=== PATIENT | female | born 1995 | race Caucasian/White ===

== ENCOUNTER 2016-12-12 16:10 | Emergency (ER) | payer OTHER ==
[2016-12-12] MEDS ORDERED: Phenazopyridine 95 MG Tab PO ONE (16:57)
[2016-12-12] MEDS ORDERED: Levofloxacin 250 MG Tab PO ONE (16:57)
[2016-12-12 16:58] VITALS: BP 135/82
--- NOTE | 2016-12-12 17:00 | EDM.PDOC ---
[id number]: UTI Time Seen by Provider: 12/12/16 16:57 Source of Information: Reports: Patient History Limitations: Reports: No Limitations - History of Present Illness INITIAL COMMENTS - FREE TEXT/NARRATIVE: 21-year-old female presents the ED with acute lower urinary tract infection. She states symptoms develop since she got up this morning. She has had previous urinary tract infections and knows the feeling of dysuria urgency and frequency. Over the last 3 hours the urine has become grossly bloody as well. She has a constant urge to void. Denies any possibility of and is at the tail end of her current period. Onset: Today Onset Date: 12/12/16 Onset Time: 10:00 Duration: Hour(s):, Getting Worse Location: Reports: Abdomen (Lower abdominal discomfort which constant need to void) Severity: Severe Improves with: Reports: None Worsens with: Reports: None Context: Denies: Activity, Exercise, Lifting, Sick Contact, Trauma, Other Associated Symptoms: Denies: No Other Symptoms, Confusion, Chest Pain, Cough, Diaphoresis, Fever/Chills, Headaches, Loss of Appetite, Malaise, Nausea/Vomiting , Rash, Seizure, Shortness of Breath, Syncope, Weakness Treatments [employer] ORIGINAL: Reports: Other (see below) Lower Abdominal Pain Score (Numeric/FACES): 8 - Related Data Allergies Allergy/AdvReac Type Severity Reaction Status Date / Time No Known Allergies Allergy Verified 12/12/16 16:52 Home Meds: Home Meds Levofloxacin [Levaquin] 500 mg PO Q24H #6 tablet 12/12/16 [Rx] Past Medical History Genitourinary History: Reports: UTI, Recurrent Social & Family History - Living Situation & Occupation Living situation: Reports: Single ED ROS GENERAL - Review of Systems Review Of Systems: See Below Constitutional: Reports: No Symptoms HEENT: Reports: No Symptoms Respiratory: Reports: No Symptoms Cardiovascular: Reports: No Symptoms Endocrine: Reports: No Symptoms GI/Abdominal: Reports: No Symptoms : Reports: No Symptoms Musculoskeletal: Reports: No Symptoms Skin: Reports: No Symptoms Neurological: Reports: No Symptoms Psychiatric: Reports: No Symptoms Hematologic/Lymphatic: Reports: No Symptoms Immunologic: Reports: No Symptoms ED EXAM, RENAL/ - Physical Exam Exam: See Below Exam Limited By: No Limitations General Appearance: Alert, WD/WN, Mild Distress Respiratory/Chest: No Respiratory Distress, Lungs Clear, Normal Breath Sounds, No Accessory Muscle Use Cardiovascular: Normal Peripheral Pulses, Regular Rate, Rhythm, No Edema, No Murmur GI/Abdominal: Normal Bowel Sounds, Soft, Non-Tender, No Organomegaly, No Distention, No Abnormal Bruit, No Mass, Tender. No: Guarding, Rigid (Mild suprapubic. No guarding or rebound), Rebound Back Exam: Normal Inspection, Full Range of Motion. No: CVA Tenderness (L), CVA Tenderness (R) Extremities: Normal Inspection, Normal Range of Motion, Non-Tender, Normal Capillary Refill Neurological: Alert, Oriented, CN II-XII Intact, Normal Cognition Psychiatric: Normal Affect, Normal Mood Skin Exam: Warm, Dry, Intact, Normal Color, No Rash Course - Vital Signs Last Recorded V/S: Last Vital Signs Temp 37.0 C 12/12/16 16:52 Pulse 95 12/12/16 16:52 Resp 16 12/12/16 16:52 BP 135/82 12/12/16 16:52 Pulse Ox 100 12/12/16 16:52 - Orders/Labs/Meds Meds: Medications Discontinued Medications Generic Name Dose Route Start Last Admin Trade Name Freq PRN Reason Stop Dose Admin Levofloxacin 500 mg 12/12/16 16:57 12/12/16 17:04 Levaquin PO 12/12/16 16:58 500 mg ONETIME ONE Administration Phenazopyridine HCl 95 mg 12/12/16 16:57 12/12/16 17:04 Urinary Pain Relief PO 12/12/16 16:58 95 mg ONETIME ONE Administration - Radiology Interpretation Free Text/Narrative:: 21-year-old female seen in the ED with the development of hemorrhagic cystitis over the last 8 hours or so. She states she had no symptoms of urinary tract flexion when she woke this morning. About 10:00 she started to notice some mild dysuria which has progressed to severe dysuria urgency and frequency with development of grossly bloody urine. Examination reveals she is afebrile with a benign abdominal exam and no signs of pyelonephritis. She reports that she had a urinary tract infection about 6 weeks go urgently she was treated with Bactrim double strength. Therefore she was placed on Levaquin 500 mg now and Pyridium 95 mg now with repeat. Him and 6 hours time. Prescription written for Levaquin 500 mg once daily for a further 6 days every day at suppertime for the next 6 days. She'll followup if any further problems occur. Urinalysis ordered and urine culture. Departure - Departure Time of Disposition: 16:58 Disposition: Home, Self-Care 01 Condition: fair Clinical Impression: Acute hemorrhagic cystitis - Discharge Information Prescriptions: Levofloxacin [Levaquin] 500 mg PO Q24H #6 tablet Referrals: PCP,Not In Area [Primary Care Provider] - Forms: ED Department Discharge Additional Instructions: Evaluation in the emergency room today in regards to development of acute lower urinary tract infection with a urine containing a large amount of blood. The blood is secondary to the severity of the infection. We call this hemorrhagic cystitis. Treatment is with antibiotics and they were started in the ED Levaquin 500 mg now and this will need to be repeated daily for another 6 days at suppertime. Use Pyridium 95 mg now and repeat in 6 hours to alleviate some of the dysuria urgency and frequency that is caused by the infection. Drink plenty of fluids. Expect marked improvement in 12-20 hours.
== END 2016-12-12 17:15 | disposition home or self-care (01) ==
LOC: JD.ED 16:10
DX: N30.00 Acute cystitis without hematuria (principal)
CPT/HCPCS: 99283; A9270